=== PATIENT | male | born 1985 | race Caucasian/White ===

== ENCOUNTER 2019-01-04 10:33 | Emergency (ER) | payer BC ==
[2019-01-04 11:22] VITALS: BP 129/85
--- NOTE | 2019-01-04 12:09 | UC ---
Skin Complaint HPI - HPI Summary HPI Summary: 33-year-old male presents with complaints of dry, itchy, red patches of skin to his forehead, bridge of nose, and bilateral cheeks for approximately 3 weeks. Reports his head issues in the past with dry flaky skin on his face however has never been this persistent. He has tried multiple [id number] skin moisturizer products with no improvement in symptoms. Denies fever, chills, difficulty breathing, changes in diet, medications, soaps, detergents, cosmetics , or known contact with environmental irritants. - History of Current Complaint Chief Complaint: UCSkin Time Seen by Provider: 01/04/19 11:52 Stated Complaint: SKIN COMPLAINT (FACE) Hx Obtained From: Patient Pain Intensity: 0 - Allergy/Home Medications Allergies/Adverse Reactions: Allergies Allergy/AdvReac Type Severity Reaction Status Date / Time No Known Allergies Allergy Verified 01/04/19 11:18 Home Medications: Home Medications Naproxen Sodium [Naproxen 220 mg] 440 mg PO Q12H PRN 01/04/19 [History Confirmed 01/04/19] PMH/Surg Hx/FS Hx/Imm Hx Previously Healthy: Yes - Denies significant PMH - Surgical History Surgical History: Yes Surgery Procedure, Year, and Place: Sigmoidoscopy with Hemorrhoid Banding, 2017 , [place] - Family History Known Family History: Positive: Non-Contributory - Social History Occupation: Employed Full-time Lives: With Family Alcohol Use: Occasionally Substance Use Type: Marijuana Smoking Status (MU): Never Smoked Tobacco Review of Systems All Other Systems Reviewed And Are Negative: Yes Constitutional: Negative: Fever, Chills Skin: Positive: Other - See HPI Respiratory: Positive: Negative Cardiovascular: Positive: Negative Gastrointestinal: Positive: Negative Genitourinary: Positive: Negative Musculoskeletal: Positive: Negative Neurological: Positive: Negative Is Patient Immunocompromised?: No Physical Exam - Summary Physical Exam Summary: GENERAL APPEARANCE: Well developed, well nourished, alert and cooperative, and appears to be in no acute distress. CARDIAC: Normal S1 and S2. No S3, S4 or murmurs. Rhythm is regular. There is no peripheral edema, cyanosis or pallor. Extremities are warm and well perfused. Capillary refill is less than 2 seconds. Peripheral pulses intact. LUNGS: Clear to auscultation without rales, rhonchi, wheezing or diminished breath sounds. ABDOMEN: Positive bowel sounds. Soft, nondistended, nontender. No guarding or rebound. No masses or hepatosplenomegally. MUSKULOSKELETAL: ROM intact to all extremities. No joint erythema or tenderness. Normal muscular development. Normal gait. SKIN: Skin normal color, texture and turgor. Multiple circular erythematous patches with scaling ranging in size from 0.5-1.0 cm in diameter to his mid forehead between his eyebrow, bridge of nose, and bilateral cheeks. Triage Information Reviewed: Yes Vital Signs: Initial Vital Signs Temp 99.1 F 01/04/19 11:15 Pulse 86 01/04/19 11:15 Resp 16 01/04/19 11:15 BP 129/85 01/04/19 11:15 Pulse Ox 100 01/04/19 11:15 Vital Signs Reviewed: Yes Course/Dx - Course Course Of Treatment: 33-year-old male presents with complaints of dry, itchy, red patches of skin to his forehead, bridge of nose, and bilateral cheeks for approximately 3 weeks. Reports his head issues in the past with dry flaky skin on his face however has never been this persistent. He has tried multiple [id number] skin moisturizer products with no improvement in symptoms. Denies fever, chills, difficulty breathing, changes in diet, medications, soaps, detergents, cosmetics , or known contact with environmental irritants. Afebrile. Vital signs stable. Patient had multiple circular erythematous patches with scaling ranging in size from 0.5-1.0 cm in diameter to his mid forehead between his eyebrow, bridge of nose, and bilateral cheeks and otherwise unremarkable exam. Will have him use triamcinolone cream twice daily to the affected areas for up to 2 weeks to treat for a facial dermatitis of unknown cause. He is to return here or follow up with primary care at 7 days if symptoms are not improving. Anticipatory guidance and warning symptoms reviewed with the patient. Verbalizes understanding and agrees with plan of care. - Differential Diagnoses - Skin Complaint Differential Diagnoses: Allergic Reaction, Contact Dermatitis, Eczema, Local Allergic Reaction, Poison [place], Poison [place], Urticaria - Diagnoses Provider Diagnosis: Facial dermatitis Discharge ED - Sign-Out/Discharge Documenting (check all that apply): Patient Departure All imaging exams completed and their final reports reviewed: No Studies - Discharge Plan Condition: Stable Disposition: HOME Prescriptions: Triamcinolone 0.1% CREAM(NF) [Kenalog Cream 0.1%(NF)] 1 applic TOPICAL BID #1 tube Patient Education Materials: Dermatitis (ED) Referrals: No Primary Care Phys,NOPCP [Primary Care Provider] - [facility] [Outside] Additional Instructions: Start triamcinalone cream. Apply a thin layer to the affected areas twice a day for up to 2 weeks. Do not use for more than 2 weeks. Return here of follow up with primary care in 7 days if no improvement in symptoms. Seek immediate medical attention if develop fever greater than 100.5 F, the rash worsens in any way, urinary difficulty breathing, or any worsening of symptoms. - Billing Disposition and Condition Condition: STABLE Disposition: Home - Attestation Statements Provider Attestation: I was available for consult. This patient was seen by the MIRIAM. The patient was not presented to, seen by, or examined by me. -Elizabeth
== END 2019-01-04 12:30 | disposition home or self-care (01) ==
LOC: UCCORT 10:33
DX: L30.9 Dermatitis, unspecified (principal)
CPT/HCPCS: 99202; G0463

== ENCOUNTER 2019-02-15 08:12 | Emergency (ER) | payer BC ==
--- OUTSIDE RECORDS SUMMARY | 2019-02-15 08:16 | XMS REPORT | Continuity of Care Document ---
:1985 External Reference #:[id number] Author Name Rodney Sosa MD Address [address], [address] [place] [address] Problems Active Problems Provider Date Pile easily reducible Rodney Sosa MD Onset: 01/04/2019 Social History Type Date Description Comments Sex Unknown Smokeless Tobacco Never Used Smokeless Tobacco ETOH Use Currently consumes alcohol socially Tobacco Use Start: Unknown Patient denies history of smoking Recreational Drug Use Marijuana occasionally Smoking Status Reviewed: 01/04/19 Patient denies history of smoking Allergies, Adverse Reactions, Alerts Description No Known Drug Allergies Medications Active Medications SIG Qnty Indications Ordering Date Provider Zinc Oxide 1 unit per rectum 85.05gm K64.1 Sanjay Coon, 10/27/2017 20% twice a day as MD Ointment needed diclofenac 3% Metronidazole2% nifedipine 0.5%, emollient xematop Colace 2-In-1 bid Unknown 8.6-50mg Tablets Tylenol 2 tab by mouth Unknown 325mg three times per Capsules day as needed Hemorrhoidal Cooling prn Unknown 0.25-50% Gel Naproxen Sodium 2 ab by mouth Unknown 220mg twice a day prn Tablets Digestive Tea Drink twice daily Unknown Immunizations Description No Information Available Vital Signs Date Vital Result Comment 01/04/2019 1:46pm BP Systolic Sitting Left Arm 101 mmHg BP Diastolic Sitting Left Arm 70 mmHg Body Temperature 99.0 F Heart Rate 86 /min Respiratory Rate 16 /min Height 67 inches 5'7" Weight 154.00 lb BMI (Body Mass Index) 24.1 kg/m2 BSA (Body Surface Area) 1.81 m2 [place] body weight in kilograms 67 kg O2 % BldC Oximetry 96 % 10/27/2017 2:49pm BP Systolic 130 mmHg BP Diastolic 78 mmHg Heart Rate 76 /min Respiratory Rate 16 /min Height 67 inches 5'7" Weight 148.00 lb BMI (Body Mass Index) 23.2 kg/m2 BSA (Body Surface Area) 1.78 m2 [place] body weight in kilograms 67 kg O2 % BldC Oximetry 96 % Ra Pain Level 3 Hemorroids Results Description No Information Available Procedures Date Code Description Status 11/07/2017 47290811 Flexible Sigmoidoscopy Completed Medical Devices Description No Information Available Encounters Description No Information Available Assessments Date Code Description Provider 01/04/2019 K64.1 Second degree hemorrhoids Rodney Sosa MD Plan of Treatment Future Appointment(s):01/22/2019 3:00 pm - Rodney Sosa MD at GI01/04/2019 - Rodney Sosa MDK64.1 Second degree hemorrhoidsComments:Anoscopy performed with finding of grade 1 hemorrhoids in the right anterior position; Banding done successfully;Fecal occult blood testing positive likely secondary to oozing from the hemorrhoids after manipulationDiscussed instructions after procedure including need to keep bowel movements soft and report if any bleeding , pain, fevers etc.Follow up:Follow-up for hemorrhoidal banding Functional Status Description No Information Available Mental Status Description No Information Available Referrals Description No Information Available
--- OUTSIDE RECORDS SUMMARY | 2019-02-15 08:16 | XMS REPORT | Continuity of Care Document ---
:1985 External Reference #:[id number] Author Name Rodney Sosa MD Address [address], [address] [place] [address] Care Team Providers Name Role Phone Sanjay Coon MD - Care Team Information Microelectronics Technician [phone] Gastroenterology Problems Active Problems Provider Date Pile easily [...] Tablets Digestive Tea Drink twice daily Unknown Metamucil 2 teaspoons in Unknown 28.3% fluid two times Powder daily Miralax 1 tablespoon with Unknown 3350NF Powder large glass of water every day Immunizations Description No Information Available Vital Signs Date Vital Result Comment 01/22/2019 11:26am BP Systolic Sitting Left Arm 121 mmHg BP Diastolic Sitting Left Arm 85 mmHg Body Temperature 96.2 F Heart Rate 70 /min Respiratory Rate 16 /min Height 67 inches 5'7" Weight 155.38 lb BMI (Body Mass Index) 24.3 kg/m2 BSA (Body Surface Area) 1.82 m2 [place] body weight in kilograms 67 kg O2 % BldC Oximetry 99 % Ra Pain Level 4 rectal 01/04/2019 1:46pm BP Systolic Sitting Left Arm 101 mmHg BP Diastolic Sitting Left Arm 70 mmHg Body Temperature 99.0 F Heart Rate 86 /min Respiratory Rate 16 /min Height 67 inches 5'7" Weight 154.00 lb BMI (Body Mass Index) 24.1 kg/m2 BSA (Body Surface Area) 1.81 m2 [place] body weight in kilograms 67 kg O2 % BldC Oximetry 96 % Results Description No Information Available Procedures Date Code Description Status 01/04/2019 80872 Hemorrhoidectomy, single ligature Completed 11/07/2017 83802588 Flexible Sigmoidoscopy Completed Medical Devices Description No Information Available Encounters Type Date Location Provider Dx Diagnosis Office Visit 01/04/2019 [facility] Rodney Sosa MD K64.1 Second degree 1:20p hemorrhoids Assessments Date Code Description Provider 01/22/2019 K64.1 Second degree hemorrhoids Rodney Sosa MD 01/04/2019 K64.1 Second degree hemorrhoids Rodney Sosa MD Plan of Treatment 01/22/2019 - Rodney Sosa MDK64.1 Second degree hemorrhoidsComments:Banded left lateral hemorrhoid columnPatient currently does not have any complaints of severe abdominal pain, pinchingContinue with soluble fiber in dietFollow up: Follow up in 2 weeks for repeat banding Functional Status Description No Information Available Mental Status Description No Information Available Referrals Description No Information Available
--- OUTSIDE RECORDS SUMMARY | 2019-02-15 08:16 | XMS REPORT | Continuity of Care Document ---
:1985 External Reference #:[id number] Author Name Rodney Sosa MD Address [address], [address] [place] [address] Care Team Providers Name Role Phone Sanjay Coon MD - Care Team Information [employer] [phone] Gastroenterology Problems Active Problems Provider Date Pile [...] Available Vital Signs Date Vital Result Comment 02/12/2019 4:04pm BP Systolic Sitting Left Arm 114 mmHg BP Diastolic Sitting Left Arm 77 mmHg Body Temperature 9.9 F Heart Rate 69 /min Respiratory Rate 16 /min Height 67 inches 5'7" Weight 159.00 lb BMI (Body Mass Index) 24.9 kg/m2 BSA (Body Surface Area) 1.83 m2 [place] body weight in kilograms 67 kg O2 % BldC Oximetry 98 % Ra Pain Level 0 01/22/2019 11:26am BP Systolic Sitting Left Arm 121 mmHg BP Diastolic Sitting Left Arm 85 mmHg Body Temperature 96.2 F Heart Rate 70 /min Respiratory Rate 16 /min Height 67 inches 5'7" Weight 155.38 lb BMI (Body Mass Index) 24.3 kg/m2 BSA (Body Surface Area) 1.82 m2 [place] body weight in kilograms 67 kg O2 % BldC Oximetry 99 % Ra Pain Level 4 rectal Results Description No Information Available Procedures Date Code Description Status 01/22/2019 54265 Hemorrhoidectomy, single ligature Completed 01/04/2019 95992 Hemorrhoidectomy, single ligature Completed 11/07/2017 [id number] Flexible Sigmoidoscopy Completed Medical Devices Description No Information Available Encounters Type Date Location Provider Dx Diagnosis Office Visit 01/22/2019 Rodney Villagomez MD K64.1 Second degree 11:30a hemorrhoids Office Visit 01/04/2019 Rodney Villagomez MD K64.1 Second degree 1:20p hemorrhoids Assessments Date Code Description Provider 02/12/2019 K64.1 Second degree hemorrhoids Rodney Sosa MD 01/22/2019 K64.1 Second degree hemorrhoids Rodney Sosa MD 01/04/2019 K64.1 Second degree hemorrhoids Rodney Sosa MD Plan of Treatment 02/12/2019 - Rodney Sosa MDK64.1 Second degree hemorrhoidsComments:FOBT positiveHemorrhoids in the right posterior location bandedRecommend increasing soluble fiberFollow up in 2 weeks Functional Status Description No Information Available Mental Status Description No Information Available Referrals Description No Information Available
[2019-02-15 08:48] VITALS: BP 126/79
[2019-02-15 09:27] LABS: Influenza A Molecular NEGATIVE (Negative); Influenza B Molecular NEGATIVE (Negative)
--- NOTE | 2019-02-15 09:40 | UC ---
Respiratory Complaint HPI - HPI Summary HPI Summary: 33 yo male with 2 day hx fever/chills/myalgias/malaise mild cough and sore throat works as oncology nurse - History of Current Complaint Chief Complaint: UCRespiratory Stated Complaint: FEVER/ST/BODY ACHES Time Seen by Provider: 02/15/19 09:19 Hx Obtained From: Patient Onset/Duration: Gradual Onset Timing: Constant Severity Initially: Mild Severity Currently: Mild Pain Intensity: 2 Pain Scale Used: 0-10 Numeric Character: Cough: Nonproductive Aggravating Factors: Nothing Alleviating Factors: Nothing Associated Signs And Symptoms: Positive: Fever, Chills, Nasal Congestion - Allergies/Home Medications Allergies/Adverse Reactions: Allergies Allergy/AdvReac Type Severity Reaction Status Date / Time No Known Allergies Allergy Verified 02/15/19 08:37 Home Medications: Home Medications Acetaminophen [Acetaminophen Extra Strength] 1,000 mg PO Q8H PRN 02/15/19 [ History Confirmed 02/15/19] Triamcinolone 0.1% CREAM(NF) [Kenalog Cream 0.1%(NF)] 1 applic TOPICAL BID PRN 02/15/19 [History Confirmed 02/15/19] PMH/Surg Hx/FS Hx/Imm Hx Previously Healthy: Yes - Surgical History Surgical History: Yes Surgery Procedure, Year, and Place: Sigmoidoscopy with Hemorrhoid Banding, 2017 , [place] - Family History Known Family History: Positive: Hypertension, Non-Contributory - Social History Alcohol Use: Occasionally Substance Use Type: Marijuana Substance Use Comment - Amount & Last Used: 02/13/19 Smoking Status (MU): Never Smoked Tobacco Review of Systems All Other Systems Reviewed And Are Negative: Yes Constitutional: Positive: Fever, Chills, Fatigue Skin: Positive: Negative Eyes: Positive: Negative ENT: Positive: Sore Throat, Sinus Congestion Respiratory: Positive: Cough Cardiovascular: Positive: Negative Gastrointestinal: Positive: Negative Genitourinary: Positive: Negative Motor: Positive: Negative Neurovascular: Positive: Negative Musculoskeletal: Positive: Negative Neurological: Positive: Negative Psychological: Positive: Negative Physical Exam Triage Information Reviewed: Yes Appearance: Well-Appearing, No Pain Distress, Well-Nourished Vital Signs: Initial Vital Signs Temp 99.6 F 02/15/19 08:42 Pulse 97 02/15/19 08:42 Resp 18 02/15/19 08:42 BP 126/79 02/15/19 08:42 Pulse Ox 99 02/15/19 08:42 Vital Signs Reviewed: Yes Eyes: Positive: Conjunctiva Clear ENT: Positive: Hearing grossly normal, Pharyngeal erythema, TMs normal, Uvula midline. Negative: Nasal congestion, Nasal drainage, Tonsillar swelling, Tonsillar exudate, Trismus, Muffled voice, Hoarse voice, Sinus tenderness Dental Exam: Normal Neck: Positive: Supple, Nontender, No Lymphadenopathy Respiratory: Positive: Lungs clear, Normal breath sounds, No respiratory distress, No accessory muscle use Cardiovascular: Positive: RRR, No Murmur Musculoskeletal: Positive: ROM Intact, No Edema Neurological: Positive: Alert Psychological Exam: Normal Skin Exam: Normal Respiratory Course/Dx - Differential Dx/Diagnosis Provider Diagnosis: Viral URI, Elevated BP without diagnosis of hypertension Discharge ED - Sign-Out/Discharge Documenting (check all that apply): Patient Departure All imaging exams completed and their final reports reviewed: No Studies - Discharge Plan Condition: Stable Disposition: HOME Patient Education Materials: Upper Respiratory Infection (ED) Forms: *Work Release Referrals: [facility] [place] [facility] [Outside] - If Needed - Billing Disposition and Condition Condition: STABLE Disposition: Home
== END 2019-02-15 09:46 | disposition home or self-care (01) ==
LOC: UCCORT 08:12
DX: J06.9 Acute upper respiratory infection, unspecified (principal); R03.0 Elevated blood-pressure reading, without diagnosis of hypertension
CPT/HCPCS: 87651; 99211; G0463